=== PATIENT | female | born 1960 | race Caucasian/White ===

== ENCOUNTER 2019-10-09 06:45 | Outpatient (CLI) | payer OTHER ==
[2019-10-09 10:19] LABS: #Eosinphils 0.2 thou/uL (0.0-0.7); #Monocytes 0.5 thou/uL (0.11-0.59); #Neutrophils 3.9 thou/uL (1.40-6.50); %Basophils 0.6 % (0.0-1.0); %Eosinophils 2.9 % (0.0-10.0); %Lymphocytes 38.9 % (21.0-51.0); %Monocytes 6.8 % (0.0-10.0); %Neutrophils 50.7 % (42.0-75.0); Hemoglobin 15.8 g/dL (12.0-16.0); Mean Corpuscular HGB CONC 32.3 g/dL (32.0-36.0); Mean Corpuscular Hemoglobin 28.6 pg (27.0-31.0); Mean Corpuscular Volume 88.3 fL (78.0-98.0); Mean Platelet Volume 9.7 fL (7.4-10.4); Platelet Count 285 thou/uL (130-400); RBC Distribution Width 11.7 % (11.5-14.5); Red Blood Cell (RBC) Count 5.54 mill/uL (4.20-5.40); White Blood Cell (WBC) Count 7.6 thou/uL (4.8-10.8)
[2019-10-09 10:26] LABS: Bacteria/HPF None Seen HPF (None Seen); Bilirubin Negative (Negative); Blood, Urine Negative (Negative); Clarity Clear (Clear); Glucose, Urine (Dipstick) Normal (Negative); Leukocyte Negative Leu/uL (Negative); Nitrite Negative (Negative); Protein, Urine (Dipstick) 10 mg/dL (Neg-Trace); Prothrombin Time 12.7 SEC (12.0-14.7); RBC/HPF 0-3 HPF (0-3); Squamous Epithelial 0-3 HPF (0-3); Urobilinogen Normal mg/dL (Less than 2); WBC/HPF 0-3 HPF (0-3)
[2019-10-09 10:39] LABS: Anion Gap 15 mmol/L (10-20); BUN (Urea Nitrogen) 14 mg/dL (9.8-20.1); Calc. Creatinine Clearance 0 mL/min (70-130); Carbon Dioxide 28 mmol/L (22-29); Chloride 103 mmol/L (98-107); Estimated GFR-MDRD 74; Glucose 85 mg/dL (70-105); Potassium 4.5 mmol/L (3.5-5.1); Sodium 141 mmol/L (136-145)
--- NOTE | 2019-10-12 16:17 | EKG ---
Test Reason : Blood Pressure : / mmHG Vent. Rate : 082 BPM Atrial Rate : 082 BPM P-R Int : 118 ms QRS Dur : 074 ms QT Int : 360 ms P-R-T Axes : 029 041 054 degrees QTc Int : 420 ms Normal sinus rhythm with sinus arrhythmia Normal ECG No previous ECGs available Confirmed by DR. Heriberto WHITTAKER ([id number]) on 10/12/2019 4:17:18 PM Referred By: IERO Confirmed By:DR. Heriberto WHITTAKER
== END 2019-10-09 06:46 | disposition home or self-care (01) ==
LOC: LABBT 06:45
PROVIDERS: ATTEND Orthopaedic Surgery
DX: Z01.818 Encounter for other preprocedural examination (principal); M17.0 Bilateral primary osteoarthritis of knee
CPT/HCPCS: 80048; 81001; 85025; 85610; 87081; 93005; 93010

== ENCOUNTER 2019-11-28 07:53 | Outpatient (CLI) | payer OTHER ==
[2019-11-28 14:04] LABS: #Basophils 0.1 thou/uL (0.0-0.2); #Eosinphils 0.2 thou/uL (0.0-0.7); #Monocytes 0.7 thou/uL (0.11-0.59); #Neutrophils 3.8 thou/uL (1.40-6.50); %Basophils 0.8 % (0.0-1.0); %Eosinophils 2.9 % (0.0-10.0); %Lymphocytes 38.9 % (21.0-51.0); %Monocytes 8.4 % (0.0-10.0); Hemoglobin 15.4 g/dL (12.0-16.0); Mean Corpuscular HGB CONC 33.4 g/dL (32.0-36.0); Mean Corpuscular Hemoglobin 29.3 pg (27.0-31.0); Mean Corpuscular Volume 87.7 fL (78.0-98.0); Mean Platelet Volume 9.8 fL (7.4-10.4); Platelet Count 299 thou/uL (130-400); RBC Distribution Width 11.7 % (11.5-14.5); Red Blood Cell (RBC) Count 5.25 mill/uL (4.20-5.40); White Blood Cell (WBC) Count 7.7 thou/uL (4.8-10.8)
[2019-11-28 14:12] LABS: Prothrombin Time 12.9 SEC (12.0-14.7)
[2019-11-28 14:19] LABS: Bilirubin Negative (Negative); Blood, Urine Negative (Negative); Clarity Clear (Clear); Glucose, Urine (Dipstick) Normal (Negative); Leukocyte Negative Leu/uL (Negative); Nitrite Negative (Negative); Protein, Urine (Dipstick) Negative (Neg-Trace); RBC/HPF 0-3 HPF (0-3); Squamous Epithelial 0-3 HPF (0-3); Urobilinogen Normal mg/dL (Less than 2); WBC/HPF 0-3 HPF (0-3)
[2019-11-28 14:22] LABS: Bacteria/HPF 1+ HPF (None Seen)
[2019-11-28 14:28] LABS: Anion Gap 13 mmol/L (10-20); BUN (Urea Nitrogen) 11 mg/dL (9.8-20.1); Calc. Creatinine Clearance 0 mL/min (70-130); Calcium 10.2 mg/dL (7.8-10.44); Carbon Dioxide 29 mmol/L (22-29); Chloride 103 mmol/L (98-107); Estimated GFR-MDRD 80; Glucose 72 mg/dL (70-105); Sodium 141 mmol/L (136-145)
--- NOTE | 2019-11-28 16:45 | EKG ---
Test Reason : Blood Pressure : / mmHG Vent. Rate : 084 BPM Atrial Rate : 084 BPM P-R Int : 118 ms QRS Dur : 074 ms QT Int : 366 ms P-R-T Axes : 030 045 055 degrees QTc Int : 432 ms Normal sinus rhythm Normal ECG When compared with ECG of 09-OCT-2019 09:56, No significant change was found Confirmed by DR. Madison PORRAS ([id number]) on 11/28/2019 4:44:50 PM Referred By: IERO Confirmed By:DR. Madison PORRAS
== END 2019-11-28 07:54 | disposition home or self-care (01) ==
LOC: LABBT 07:53
PROVIDERS: ATTEND Orthopaedic Surgery
DX: Z01.818 Encounter for other preprocedural examination (principal); M17.0 Bilateral primary osteoarthritis of knee
CPT/HCPCS: 80048; 81001; 85025; 85610; 87081; 93005; 93010

== ENCOUNTER 2019-12-01 05:33 | Day surgery (SDC) | payer OTHER ==
[2019-11-28 13:10] VITALS: BMI 33.3
[2019-12-01] MEDS ORDERED: Sodium Chloride 0.9% 100 ML ONE (05:52)
[2019-12-01] MEDS ORDERED: Tranexamic Acid 1,000 MG/10 ML VIAL ONE (05:52)
[2019-12-01] MEDS ORDERED: Vancomycin 1.5 GRAM/300 ML BAG 1.5 GM in Premix Bag 1 BAG IVPB SCH ×2 (06:15→20:30)
[2019-12-01] MEDS ORDERED: Midazolam HCl 2 mg/2 ml Vial ONE (06:30)
[2019-12-01] MEDS ORDERED: Lidocaine 1% (PF) 30 ML VIAL ONE ×2 (06:30)
[2019-12-01] MEDS ORDERED: Bupivacaine PF 0.5% 30 ML VIAL ONE (06:30)
[2019-12-01] MEDS ORDERED: Fentanyl 100 MCG/2 ML VIAL ONE (06:30)
[2019-12-01] MEDS ORDERED: methylPREDNISolone Acetate 40 mg/ml Vial ONE (06:30)
[2019-12-01] MEDS ORDERED: Zolpidem Tartrate 5 MG TAB PO PRN ×2 (07:13→10:00)
[2019-12-01] MEDS ORDERED: Acetaminophen 325 MG TAB PO PRN ×2 (07:13→10:03)
[2019-12-01] MEDS ORDERED: traMADol HCl 50 MG TAB PO PRN ×3 (07:13→10:00)
[2019-12-01] MEDS ORDERED: Ondansetron PF 4 MG/2 ML Vial IVP PRN ×2 (07:13→10:00)
[2019-12-01] MEDS ORDERED: Promethazine HCl 25 MG/ML VIAL IM PRN ×3 (07:13→10:00)
[2019-12-01] MEDS ORDERED: HYDROcodone/Acetaminophen 10/325 mg Tablet PO PRN ×3 (07:13→10:00)
[2019-12-01] MEDS ORDERED: Fentanyl 100 MCG/2 ML VIAL SLOW IVP PRN ×2 (07:13→10:03)
[2019-12-01] MEDS ORDERED: diphenhydrAMINE 25 MG CAP PO PRN (07:13)
[2019-12-01] MEDS ORDERED: Tranexamic Acid 1,000 MG in Sodium Chloride 0.9% 100 ML IVPB SCH (07:15)
[2019-12-01] MEDS ORDERED: Promethazine HCl 25 MG/ML VIAL SLOW IVP PRN (08:14)
[2019-12-01] MEDS ORDERED: Ondansetron HCl/PF 4 MG/2 ML Vial IVP PRN (08:14)
[2019-12-01] MEDS ORDERED: Non-Formulary Item 1 EACH (Multivitamin [Daily Multiple Vitamin] 1 EACH) PO SCH (09:00)
[2019-12-01] MEDS ORDERED: Ropivacaine HCl/PF 250 ML in Premix Bag 1 BAG NERVE BLCK SCH (10:00)
[2019-12-01] MEDS ORDERED: Lidocaine 1% PF 5 ML VIAL ONE (10:31)
[2019-12-01] MEDS ORDERED: PHENYLEPHRINE-NS 100 MCG/ML 10 ML SYRINGE ONE (10:31)
[2019-12-01] MEDS ORDERED: Ketorolac Tromethamine 30 MG/ML VIAL ONE (10:31)
[2019-12-01] MEDS ORDERED: Ondansetron PF 4 MG/2 ML Vial ONE (10:31)
[2019-12-01] MEDS ORDERED: Ropivacaine 0.2% HCl/PF (40 MG/20 ML VIAL) ONE (10:31)
[2019-12-01] MEDS ORDERED: Ropivacaine 0.5% HCl/PF (150 MG/30 ML VIAL) ONE (10:31)
[2019-12-01] MEDS ORDERED: PROPOFOL 200 MG/20 ML VIAL ONE (10:31)
[2019-12-01] MEDS ORDERED: Ketorolac Tromethamine 30 MG/ML VIAL IVP SCH ×2 (12:00→14:00)
[2019-12-01] MEDS: Aspirin 81 mg Enteric Coated Tablet PO SCH ×2 (12:30→20:46)
[2019-12-01] MEDS: Sodium Chloride 0.9% 1,000 ML IV SCH ×2 (12:30→20:27)
[2019-12-01] MEDS: Cyanocobalamin (Vitamin B-12) 1,000 MCG TAB PO SCH (12:30)
--- NOTE | 2019-12-01 13:41 | OP ---
DATE OF PROCEDURE: 12/01/2019 PREOPERATIVE DIAGNOSIS: Bilateral knee arthritis, right worse than left. POSTOPERATIVE DIAGNOSIS: Bilateral knee arthritis, right worse than left. PROCEDURES PERFORMED: 1. Right total knee replacement using [employer] pinless navigation. 2. Left knee corticosteroid injection. [employer] AMBASSADOR: Ajit Saucedo PA-C ESTIMATED BLOOD LOSS: Minimal. COMPLICATIONS: None. ANESTHESIA: The patient did have a general anesthetic as well as a preoperative block. IMPLANTS: To the right knee is a [employer] total knee system. We used a size 4 cruciate-retaining femur. We used a size 3 primary tibial baseplate. We used a 3 x 9 mm CS X3 tibial bearing and a 27 x 8 symmetric X3 patella. DISPOSITION: She did go to recovery room in stable condition. INDICATIONS: This is a 59-year-old female, who has had bilateral knee arthritic pain for years. At this time, she has failed nonoperative treatment and wished to have the right knee replaced and left knee injected. DESCRIPTION OF PROCEDURE: After all appropriate consent forms were explained and signed, she was taken back to the operative room and at this time was given general anesthetic. The left knee was cleaned with alcohol and 80 mg of Depo-Medrol with plain lidocaine was injected into the knee without complication. Band-Aid was applied. After all appropriate consent forms were explained and signed, the patient was taken back to the operating room and at this time was given general anesthetic. Once the level of anesthesia was appropriate, a well-padded tourniquet was placed on the right leg, and the leg was then prepped and draped in standard surgical fashion. The limb was exsanguinated and tourniquet taken up to 300 mmHg. Midline incision was made with a 10 blade down through the skin and subcutaneous tissue. Bovie electrocautery was used to coagulate any brisk venous bleeding. A new blade was used to make a medial parapatellar arthrotomy. Small subperiosteal release was performed medially and excess fat pad was removed. The knee was flexed up to gain access to the femur. The femur was navigated and distal femoral resection was made. Epicondylar access was used to align our sizing jig and this was pinned in place. We sized our femur to be a size 4 cruciate-retaining femur. 4:1 cutting block was applied and pinned. Anterior and posterior chamfer cuts were then made. We navigated out our proximal tibia and made our proximal tibial resection. Spreaders were used to remove any posterior osteophytes off the back of the femur as well as remaining meniscal tissue. A long alignment kaushal was then used to achieve correct rotation of our tibial baseplate and we used a size 3 primary tibial baseplate was chosen. This was pinned in place. We trialed the polyethylene and we used a 3 x 9 mm CS X3 tibial bearing polyethylene gave us full extension and good stability throughout range of motion. Two towel clips and a saw were used to cut our patella. Three lug nuts were drilled and a 27 x 8 symmetric X3 patella was trialed which sat nicely in the trochlear groove. We then drilled our femur and punched our tibia. All components were removed. The knee was thoroughly irrigated and dried. Cement was mixed into the cement gun on the back table. Components were then placed. The knee was held out in full extension until the cement had dried. All excess bone cement was removed. Multiple #2 Vicryl stitches as well as a Quill were used to close our extensor mechanism. 0 Quill followed by a running Monoderm was then used to close the skin. Surgicel glue was then used on the skin. Once this had dried, soft tissue dressing was applied to the limb, tourniquet was let down, and the toes pinked up nicely. The patient was then awakened and taken to the recovery room in stable condition. All counts were correct at the end of the case. The patient did receive preoperative IV antibiotics. The patient was injected with Exparel for postoperative pain relief. Job ID: [id number]
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
[2019-12-01] MEDS: Ketorolac Tromethamine 30 MG/ML VIAL IVP SCH ×2 (16:19→20:45)
[2019-12-01] MEDS: CEFAZOLIN 2 GM in Premix Bag 1 BAG IVPB SCH ×2 (16:19→23:18)
[2019-12-01] MEDS ORDERED: Vancomycin HCl 1.5 GM in Sodium Chloride 0.9% 250 ML 300 ML IVPB SCH (20:00)
[2019-12-02] MEDS: Ketorolac Tromethamine 30 MG/ML VIAL IVP SCH ×4 (02:49→20:00)
[2019-12-02] MEDS: Sodium Chloride 0.9% 1,000 ML IV SCH ×3 (03:15→23:04)
[2019-12-02 05:16] LABS: Mean Corpuscular HGB CONC 32.8 g/dL (32.0-36.0); Mean Corpuscular Hemoglobin 28.9 pg (27.0-31.0); Mean Corpuscular Volume 88.2 fL (78.0-98.0); Mean Platelet Volume 9.6 fL (7.4-10.4); Platelet Count 227 thou/uL (130-400); RBC Distribution Width 11.7 % (11.5-14.5); Red Blood Cell (RBC) Count 3.82 mill/uL (4.20-5.40); White Blood Cell (WBC) Count 14.2 thou/uL (4.8-10.8)
[2019-12-02] MEDS: HYDROcodone/Acetaminophen 10/325 mg Tablet PO PRN ×4 (07:48→23:53)
[2019-12-02] MEDS: Cyanocobalamin (Vitamin B-12) 1,000 MCG TAB PO SCH (07:50)
[2019-12-02] MEDS: Multivitamin W/ Minerals 1 TAB PO SCH (07:50)
[2019-12-02] MEDS: Aspirin 81 mg Enteric Coated Tablet PO SCH ×2 (07:50→20:00)
[2019-12-02] MEDS: Ferrous Gluconate 324 MG TAB PO SCH ×2 (07:51→18:48)
[2019-12-02] MEDS: Senokot S 8.6-50 MG TAB PO SCH ×2 (07:51→20:00)
--- NOTE | 2019-12-02 13:58 | PRG ---
DATE OF SERVICE: 12/02/2019 SUBJECTIVE: Nancy is a 59-year-old female postop day 1 from a right total knee arthroplasty. She is a little tearful this afternoon and has some anxiety complaints of pain, but she is able carry on conversation and she has already received a fair amount of medicine. She was able to ambulate 150 feet on day of surgery and she has been up to twice now and ambulated up to 270 feet today. OBJECTIVE: VITAL SIGNS: Temperature 98.2, pulse 76, respiratory rate 18 and nonlabored, O2 saturation 97% on room air, blood pressure is 128/83. GENERAL: She is alert and oriented to person, place, time, situation, responsive and appropriate with examiner, little tearful, but nonfocal. EXTREMITIES: Her incision is clean. No erythema. No strike through. She is neurovascularly intact in the right lower extremity. LABORATORY DATA: Hemoglobin and hematocrit 11.0 and 33.7. IMPRESSION: 1. A 59-year-old female postop day 1 from right total knee arthroplasty. 2. Mild situational anxiety. PLAN: Continue current care. Probable discharge to home tomorrow. Job ID: [id number]
--- NOTE | 2019-12-02 22:04 | PDOC.HOSPP ---
- Subjective Encounter Date: 12/02/19 Encounter Time: 18:30 Subjective: Patient seen and examined for med mngt. Pain controlled. No new complaints. No overnight events - Objective Vital Signs & Weight: Vital Signs (12 hours) Temp Pulse Resp BP Pulse Ox 12/02/19 20:11 98.6 F 75 18 132/80 98 12/02/19 15:04 98.3 F 94 20 143/82 H Weight Admit Weight 194 lb Weight 194 lb I&O: 12/01/19 12/02/19 12/03/19 06:59 06:59 06:59 Intake Total 1350 1475 Output Total 675 Balance 675 1475 Result Diagrams: 12/02/19 05:01 Additional Labs: Laboratory Tests 04/05/16 09/15/19 11/28/19 08:46 08:40 13:30 Creatinine 0.74 Estimated GFR (MDRD) 80 Alkaline Phosphatase 92 Triglycerides 151 H Cholesterol 252 H LDL Cholesterol, Calc 175 Hospitalist ROS - Review of Systems Respiratory: denies: cough, dry, shortness of breath, hemoptysis, SOB with excertion, pleuritic pain, sputum, wheezing, other Cardiovascular: denies: chest pain, palpitations, orthopnea, paroxysmal noc. dyspnea, edema, light headedness, other Gastrointestinal: denies: nausea, vomiting, abdominal pain, diarrhea, constipation, melena, hematochezia, other - Medication Medications: Active Medications Generic Name Dose Route Start Last Admin Trade Name Freq PRN Reason Stop Dose Admin Hydrocodone Bitart/Acetaminophen 2 tab 12/01/19 10:00 12/02/19 18:47 [place] 10/325 PO 2 tab Q4H PRN Administration PAIN (4-6) Aspirin 81 mg 12/01/19 09:00 12/02/19 20:00 Ecotrin PO 81 mg BID GLEN Administration Cyanocobalamin 2,500 mcg 12/01/19 09:00 12/02/19 07:50 Vitamin B-12 PO Not Given DAILY GLEN Fentanyl 50 mcg 12/01/19 10:03 12/02/19 10:44 Sublimaze SLOW IVP 50 mcg Q1H PRN Administration Breakthrough Pain Ferrous Gluconate 324 mg 12/02/19 08:00 12/02/19 18:48 Fergon PO 324 mg BID-WM GLEN Administration Sodium Chloride 1,000 mls @ 100 mls/hr 12/01/19 07:15 12/02/19 18:51 Normal Saline 0.9% IV Not Given .Q10H GLEN Ropivacaine 250 ml/ Device 250 mls @ 10 mls/hr 12/01/19 10:00 12/02/19 10:36 NERVE BLCK 12/04/19 09:59 250 mls INF GLEN Administration As Directed Iron/Minerals/Multivitamins 1 tab 12/02/19 09:00 12/02/19 07:50 Theragran M PO Not Given DAILY GLEN Ketorolac Tromethamine 30 mg 12/01/19 14:00 12/02/19 20:00 Toradol IVP 12/03/19 08:01 30 mg 0200,0800,1400,2000 GLEN Administration Senna/Docusate Sodium 2 tab 12/02/19 09:00 12/02/19 20:00 Senokot S PO 2 tab BID GLEN Administration Sodium Chloride 10 ml 12/01/19 07:13 12/02/19 08:00 Flush - Normal Saline IVF 10 ml PRN PRN Administration Saline Flush Tramadol HCl 100 mg 12/01/19 10:00 12/02/19 13:06 Ultram PO 100 mg Q6H PRN Administration Moderate Pain 4-6 - Exam General Appearance: NAD Heart: RRR, no gallops Respiratory: CTAB, no rales Gastrointestinal: soft, non-tender, normal bowel sounds Extremities: no cyanosis, no edema Hosp A/P - Plan DVT proph w/SCDs DJD Overactive bladder Obesity BMI 33 CKD 2 HLD Peripheral neuropathy PLAN: Cont Vit B12 def Cont supportive care Cont PT/OT Advised patient to get yearly physical and repeat Lipid panel
[2019-12-03] MEDS: Ketorolac Tromethamine 30 MG/ML VIAL IVP SCH ×2 (02:52→09:28)
[2019-12-03] MEDS: HYDROcodone/Acetaminophen 10/325 mg Tablet PO PRN ×2 (03:55→15:19)
[2019-12-03 05:48] LABS: Hemoglobin 10.4 g/dL (12.0-16.0); Mean Corpuscular HGB CONC 32.1 g/dL (32.0-36.0); Mean Corpuscular Hemoglobin 28.4 pg (27.0-31.0); Mean Corpuscular Volume 88.7 fL (78.0-98.0); Mean Platelet Volume 10.1 fL (7.4-10.4); Platelet Count 211 thou/uL (130-400); RBC Distribution Width 11.9 % (11.5-14.5); Red Blood Cell (RBC) Count 3.66 mill/uL (4.20-5.40); White Blood Cell (WBC) Count 11.9 thou/uL (4.8-10.8)
[2019-12-03] MEDS: Ferrous Gluconate 324 MG TAB PO SCH (09:28)
[2019-12-03] MEDS: Aspirin 81 mg Enteric Coated Tablet PO SCH (09:29)
[2019-12-03] MEDS: Senokot S 8.6-50 MG TAB PO SCH (09:30)
[2019-12-03] MEDS: Sodium Chloride 0.9% 1,000 ML IV SCH (09:30)
[2019-12-03] MEDS: Multivitamin W/ Minerals 1 TAB PO SCH (09:30)
[2019-12-03] MEDS: Cyanocobalamin (Vitamin B-12) 1,000 MCG TAB PO SCH (09:30)
[2019-12-03 11:41] VITALS: BP 121/78; TEMP 98.5
== END 2019-12-03 15:47 | disposition home or self-care (01) ==
LOC: SDC 05:33 → SURG B 12:23 → SDC 12-03 15:47
PROVIDERS: ATTEND Orthopaedic Surgery
PROC: 0SRC0JZ Replacement of Right Knee Joint with Synthetic Substitute, Open Approach (ICD-10-PCS; principal; 2019-12-01)
PROC: 3E0U33Z Introduction of Anti-inflammatory into Joints, Percutaneous Approach (ICD-10-PCS; principal; 2019-12-01)
DX: M17.11 Unilateral primary osteoarthritis, right knee (principal); M17.12 Unilateral primary osteoarthritis, left knee; E66.9 Obesity, unspecified; N18.2 Chronic kidney disease, stage 2 (mild); E78.5 Hyperlipidemia, unspecified; N32.81 Overactive bladder; Z68.33 Body mass index [BMI] 33.0-33.9, adult; Z79.899 Other long term (current) drug therapy
CPT/HCPCS: 36415; 85027; C1713; C1776; J0690; J1030; J1885; J2001; J2250; J2405; J2704; J2795; J3010; J3490; S0020